=== PATIENT | female | born 1995 | race Caucasian/White ===

== ENCOUNTER 2021-12-27 23:17 | Outpatient (CLI) | payer OTHER, SELFPAY ==
[2021-12-28 00:02] LABS: Alanine Aminotransferase 54 U/L (6-35); Albumin Level 4.7 g/dL (3.5-5.1); Alkaline Phosphatase 93 U/L (38-126); Anion Gap 14 mmol/L (8-16); Aspartate Amino Transferase 48 U/L (14-36); Bilirubin,Total 0.3 mg/dL (0.2-1.3); Blood Urea Nitrogen 15 mg/dL (7-17); Calcium 8.8 mg/dL (8.4-10.2); Carbon Dioxide 27 mmol/L (22-30); Chloride 102 mmol/L (98-107); Estimated Glomerular Filt Rate > 60; Glucose 82 mg/dL (65-110); Sodium 143 mmol/L (137-145)
[2021-12-28 00:31] LABS: Free T4 Free Thyroxine 0.86 ng/mL (0.78-2.19)
[2021-12-28 01:16] LABS: Free T4 Free Thyroxine Reflex 0.86 ng/dL (0.78-2.19)
[2021-12-28 01:55] LABS: Total Triiodothyronine (T3) 1.35 NG/ML (0.97-1.69)
== END 2021-12-27 23:18 | disposition home or self-care (01) ==
LOC: ANHOBOP 23:21
PROVIDERS: PCP Registered Nurse; Visit Provider Registered Nurse
DX: R79.89 Other specified abnormal findings of blood chemistry (principal); R74.8 Abnormal levels of other serum enzymes
CPT/HCPCS: 36415; 80053; 84439; 84443; 84480

== ENCOUNTER 2022-03-22 02:00 | Outpatient (CLI) | payer OTHER, SELFPAY ==
[2022-03-22 02:44] LABS: Alanine Aminotransferase 38 U/L (6-35); Albumin Level 4.5 g/dL (3.5-5.1); Alkaline Phosphatase 87 U/L (38-126); Anion Gap 5 mmol/L (8-16); Aspartate Amino Transferase 28 U/L (14-36); Bilirubin,Total 0.4 mg/dL (0.2-1.3); Blood Urea Nitrogen 11 mg/dL (7-17); Calcium 8.8 mg/dL (8.4-10.2); Carbon Dioxide 27 mmol/L (22-30); Chloride 102 mmol/L (98-107); Estimated Glomerular Filt Rate > 60; Glucose 100 mg/dL (65-110); Potassium 3.7 mmol/L (3.4-5.0); Sodium 134 mmol/L (137-145)
[2022-03-22 04:45] LABS: Free T4 Free Thyroxine Reflex 1.13 ng/dL (0.78-2.19)
[2022-03-22 05:43] LABS: Total Triiodothyronine (T3) 1.41 NG/ML (0.97-1.69)
== END 2022-03-22 02:01 | disposition home or self-care (01) ==
LOC: ANHOBOP 02:02
PROVIDERS: PCP Registered Nurse; Visit Provider Registered Nurse
DX: R74.8 Abnormal levels of other serum enzymes (principal); E03.9 Hypothyroidism, unspecified
CPT/HCPCS: 36415; 80053; 84439; 84443; 84480

== ENCOUNTER 2022-05-17 05:30 | Outpatient (CLI) | payer OTHER, SELFPAY ==
[2022-05-17 07:38] LABS: Free T4 Free Thyroxine 1.27 ng/mL (0.78-2.19)
== END 2022-05-17 05:31 | disposition home or self-care (01) ==
LOC: ANHOBOP 05:31
PROVIDERS: PCP Registered Nurse; Visit Provider Registered Nurse
DX: E03.9 Hypothyroidism, unspecified (principal)
CPT/HCPCS: 36415; 84439; 84443

== ENCOUNTER 2023-02-10 09:30 | Outpatient (CLI) | payer OTHER, SELFPAY | END 2023-02-10 09:31 | disposition home or self-care (01) | PROVIDERS: PCP Registered Nurse; Visit Provider Advanced Practice Midwife | DX: Z32.01 Encounter for pregnancy test, result positive (principal); Z97.5 Presence of (intrauterine) contraceptive device | CPT/HCPCS: 36415; 84702 ==

== ENCOUNTER 2023-02-12 18:43 | Outpatient (CLI) | payer OTHER, SELFPAY ==
[2023-02-12 19:29] LABS: Beta HCG Quantitative < 2.39 mIU/ML
== END 2023-02-12 18:44 | disposition home or self-care (01) ==
LOC: ANHOBOP 18:49
PROVIDERS: PCP Registered Nurse; Visit Provider Advanced Practice Midwife
DX: Z32.01 Encounter for pregnancy test, result positive (principal)
CPT/HCPCS: 36415; 84702